=== PATIENT | female | born 1950 | race Caucasian/White ===

== ENCOUNTER 2023-12-17 09:45 | Inpatient (IN) ==
[2023-12-17] MEDS: Buffered Lidocaine 1% SYRIN 1 ml INTRADERM ONE (08:48)
[2023-12-17] MEDS: Lactated Ringers 1000 ml BAG 1,000 ML IV SCH (08:48)
[2023-12-17 09:05] LABS: Rapid COVID-19 Molecular Undetected (Undetected)
[~2023-12-17 09:45] MED LIST: Dexamethasone IV 4 MG/ML VIAL 1 ml VIAL ONE; Heparin 5000 UNITS/ML 1 mL VIAL ONE; Lidocaine 2% PF 5 ML VIAL ONE; Midazolam 2 mg/2 ml VIAL 1 mg/ml 2 ml VIAL (2 mg) ONE; NS 0.45% 1000 ml BAG 1,000 ML IV SCH; Naloxone 0.4 mg VIAL 0.4 mg/ml 1 ml VIAL IV PRN; Ondansetron 4 mg VIAL 2 MG/ML 2 ml VIAL ONE; Propofol 10 MG/ML 20 ML BTL ONE; Rocuronium 50 mg VIAL 10 mg/ml 5 ml VIAL (50 mg) ONE; Scopolamine 1 mg/72hr PATCH ONE; ceFAZolin 2 GM PREMIX 2 GM/50 ML BAG ONE; fentaNYL 250 mcg/5 ml 50 MCG/ML 5 ml VIAL (250 MCG) ONE
[2023-12-17] MEDS ORDERED: ISOSULFAN BLUE 1% 5 ML VIAL 10 MG/ML SUBCUT ONE (11:54)
[2023-12-17] MEDS ORDERED: Povidone Iodine 5% OPTH 30 ML BTL ONE (12:25)
[2023-12-17] MEDS ORDERED: Gentamicin ADULT 40 MG/ML VIAL (2 ML VIAL = 80 MG) ONE (12:25)
[2023-12-17] MEDS ORDERED: Bupivacaine 0.25% SDV 30 ML ONE (12:25)
[2023-12-17] MEDS ORDERED: ceFAZolin VIAL VIAL ONE (12:25)
[2023-12-17] MEDS ORDERED: Bupivacaine 0.25% SDV PF 10 ML VIAL INJ ONE (12:26)
[2023-12-17] MEDS ORDERED: fentaNYL 250 mcg/5 ml 50 MCG/ML 5 ml VIAL (250 MCG) ONE (12:52)
[2023-12-17] MEDS ORDERED: Labetalol IV 5 MG/ML 20 ml VIAL ONE (12:52)
[2023-12-17] MEDS ORDERED: fentaNYL 100 mcg/2 ml 50 MCG/ML VIAL ONE ×2 (14:47→15:32)
[2023-12-17] MEDS ORDERED: Ondansetron 4 mg VIAL 2 MG/ML 2 ml VIAL IV PRN (16:28)
[2023-12-17] MEDS ORDERED: HYDROcodone/ACETAMIN 5/325 mg TAB PO PRN (16:28)
[2023-12-17] MEDS ORDERED: Morphine 2 MG/ML SYRINGE IV PRN ×2 (16:28→18:58)
[2023-12-17] MEDS: Heparin 5000 UNITS/ML 1 mL VIAL SUBCUT SCH (16:29)
[2023-12-17] MEDS ORDERED: Calcium Carb (TUMS) 500 mg CHEW TAB PO PRN (16:33)
[2023-12-17] MEDS: Acetaminophen IV 1 GM/100ML 1,000 MG/100 ML BAG IV ONE (16:34)
[2023-12-17] MEDS: Ondansetron 4 mg VIAL 2 MG/ML 2 ml VIAL IV PRN (16:40)
[2023-12-17] MEDS: fentaNYL 100 mcg/2 ml 50 MCG/ML VIAL IV PRN (16:43)
[2023-12-17] MEDS ORDERED: Benzocaine/Menthol LOZ MT PRN (19:02)
[2023-12-17] MEDS: HYDROcodone/ACETAMIN 5/325 mg TAB PO PRN (19:48)
[2023-12-17] MEDS: NS 0.9% 1000 ml BAG 1,000 ML IV SCH (19:58)
[2023-12-17] MEDS ORDERED: Heparin 5000 UNITS/ML 1 mL VIAL SUBCUT ONE (20:00)
[2023-12-18] MEDS: Heparin 5000 UNITS/ML 1 mL VIAL SUBCUT SCH (00:41)
[2023-12-18] MEDS: ceFAZolin 2 GM PREMIX 2 GM/50 ML BAG IV SCH (00:41)
[2023-12-18 10:07] VITALS: BP 124/49
== END 2023-12-18 11:30 | disposition home or self-care (01) | DRG 363 ==
LOC: EDSTATUS 09:45 → SSU 18:35
PROVIDERS: ADMIT Plastic Surgery; ATTEND Plastic Surgery